=== PATIENT | male | born 1945 | race Caucasian/White ===

== ENCOUNTER 2020-01-19 23:13 | Emergency (ER) | payer MEDICARE, SELFPAY ==
[2020-01-19 23:14] VITALS: BP 183/99; PULSE 72; RESP 16; TEMP 36.2; O2SAT 98; BMI 27.3
--- NOTE | 2020-01-19 23:25 | CT_ITS ---
STUDY: CT BRAIN WITHOUT CONTRAST REASON FOR EXAM: Male, 74 years old. EtOH passed OUT IN THE Shower, laceration TO BACK OF HEAD,NECK PAIN -- HX:HTN RADIATION DOSAGE (If Supplied By Facility): CTDIvol = ( 44.99 ) mGy, DLP = ( 829.85 ) mGycm TECHNIQUE: Transaxial CT imaging of the brain was performed without administration of intravenous contrast material. Individualized dose optimization techniques were used for this CT. COMPARISON: No relevant priors. FINDINGS: There is a 5.2 x 1.5 cm left posterior parietal focus of soft tissue edema. There is no visualized fracture. Normal calvarium. There is mild cerebral atrophy with widening of the extra-axial spaces and ventricular dilatation. Normal white matter tracts of the cerebral hemispheres. Normal basal ganglia and thalami. Normal brainstem. Normal cerebellum. There is no intracranial hemorrhage. There are no findings of an acute ischemic infarction. There is mucoperiosteal inflammatory disease of the paranasal sinuses consistent with mild chronic sinusitis. CT/Brain/Head without Contrast IMPRESSION: Left posterior parietal focus of superficial soft tissue edema cephalohematoma without evidence of underlying fracture or acute hemorrhage. Mild atrophy. Mild sinusitis. Electronically Signed: Neelam Chávez MD at 0:38 EST Tel , Service support ,
--- NOTE | 2020-01-19 23:25 | CT_ITS ---
STUDY: CT CERVICAL SPINE WITHOUT CONTRAST REASON FOR EXAM: Male, 74 years old. EtOH passed out IN THE SHOWER,LACERATION TO BACK OF HEAD,NECK PAIN -- HX:HTN RADIATION DOSAGE (If Supplied By Facility): CTDIvol = ( 21.45 ) mGy, DLP = ( 419.14 ) mGycm TECHNIQUE: High resolution transaxial imaging was performed without contrast material. Sagittal and coronal images were reconstructed. Individualized dose optimization techniques were used for this CT. COMPARISON: None FINDINGS: Normal craniovertebral junction. There are degenerative changes of the anterior atlantoaxial articulation. Normal odontoid process. There is straightening of the normal cervical lordosis. Normal vertebral bodies and posterior osseous elements. C2-3: Normal endplates. Normal disc height and morphology. Normal central canal and intervertebral neuroforamina. C3-4: There is facet arthropathy right greater than left. There is moderate right neural foraminal narrowing and no significant central stenosis. C4-5: There is mild disc space narrowing facet arthropathy minimal neural foramina narrowing no significant central stenosis. C5-6: There is spondylosis. There is facet arthropathy. There is minimal neural foramina narrowing no significant central stenosis. There is facet arthropathy on the left with chronic appearing well-corticated fragmentation suggesting prior injury and/or degenerative change. There is calcification of the nuchal ligament. This calcification of the carotid bulbs. C6-7: There is disc space narrowing broad disc osteophyte minimal neural foramina narrowing no significant central stenosis. C7-T1: Normal endplates. Normal disc height and morphology. Normal central canal and intervertebral neuroforamina. In both apices there are nodular densities. On the right side there is a nodular density measuring 0.8 x 0.6 cm and 0.3 x 0.5 cm. On the left measuring 4.[address]/Spine Cervical without Contras IMPRESSION: Degenerative change no evidence of an acute fracture. Incidental visualization of nodules in the apices which may represent partial visualization of scarring or sequelae to prior inflammatory change however recommend full CT scan of the chest when appropriate for further clarification or comparison to prior study. Electronically Signed: Neelam Chávez MD at 0:43 EST Tel , Service support ,
--- NOTE | 2020-01-19 23:26 | ED.DCSUM_ITS ---
- ER Visit Summary Date of Service: 01/19/20 Chief Complaint: Fall, head and neck pain History of Present Illness: The patient is a 74 M who presents after a fall. Patient states he has been drinking alcohol all evening. He got into the shower and passed out. He did hit his head. He is complaining of pain in the occipital area as well as neck pain. He is denying any other symptoms. Last tetanus is unknown. No pain to his arms or legs. He does not remember how much alcohol he drank tonight. He is on no blood thinning medications. He states he drinks about 3 days a week. Physical Examination: Vital signs reviewed. Head exam shows a 3.5 cm laceration to the occiput. Heart is regular rate and rhythm without murmurs. Lungs are clear to auscultation. Abdomen is soft and nontender. The cervical spine is diffusely tender. Extremities reveal no edema. Skin exam normal. Neurologic exam shows equal strength and sensation. He is intoxicated but answers all questions appropriately. Test Results: CAT scan of the head shows scalp swelling but no other intracranial findings. CAT scan of the cervical spine reveals no acute fractures. The CAT scan does show the apical lung areas and he does have some scarring, likely due to his smoking. Emergency Department Course and Treatment: The patient had his tetanus status updated. I was able to place 4 hermelindo into the scalp wound. It was cleansed with chlorhexidine before him. He will have these out in 7 to 10 days. He is able to ambulate without any difficulties. His syncopal episode is likely due to being intoxicated and patient will be discharged to home with a sober ride. Treatment Plan: [] Disposition: Discharge Impression: Scalp laceration, 3.5 cm, scalp hematoma, syncope, alcohol intoxication Stable by ED physician This note was generated with [employer]oKard[employer] dictation software. It may contain incorrect words, spelling, and punctuation that were not noted in review of the chart prior to signing ED Disposition - Plan for ED Patient: Disposition: Home or Assisted Living Instructions: ED Head Injury Adult Referrals: NOT,DEFINED [NON-STAFF] -
[2020-01-19] MEDS: Diphth,Pertuss(Acell),Tet Vac 0.5 ML Vial IM (23:39)
[2020-01-19] MEDS: Acetaminophen 325 MG Tablet 650 MG PO (23:39)
[2020-01-20 01:09] VITALS: BP 182/90; PULSE 80; RESP 14; O2SAT 98
--- NOTE | 2020-01-20 01:10 | ED.RN ---
PT GIVEN WRITTEN AND VERBAL DISCHARGE INSTRUCTIONS. PT REMAINS HYPERTENSIVE HE WAS FROM ARRIVAL. DR. ZAMUDIO INFORMED, AND CLEARS PT FOR D/C. PT VERBALIZES UNDERSTANDING IS TO FOLLOW UP WITH PCP FOR STAPLE REMOVAL.
== END 2020-01-20 01:12 | disposition home or self-care (01) ==
PROVIDERS: Emergency Provider Emergency Medicine
DX: S01.01XA Laceration without foreign body of scalp, initial encounter (principal); R55 Syncope and collapse; F10.129 Alcohol abuse with intoxication, unspecified; Y90.9 Presence of alcohol in blood, level not specified; W18.2XXA Fall in (into) shower or empty bathtub, initial encounter; Y93.9 Activity, unspecified; Y92.9 Unspecified place or not applicable; Z23 Encounter for immunization
CPT/HCPCS: 12002; 70450; 72125; 90715; 99282

== ENCOUNTER → 2020-11-16 14:26 | Outpatient (CLI) | payer MEDICARE, SELFPAY ==
[2020-11-16 17:59] LABS: Absolute Neutrophil Count 4.9 X10^3/uL (2.0-7.7); Basophil# 0.05 X10^3/uL; Basophil% 0.6 % (0-1); Eosinophil# 0.47 X10^3/uL; Hemoglobin 14.2 g/dL (13.0-16.5); Lymphocyte % 22.9 % (19-41); Mean Corpuscular Hgb 31.3 pg (27.0-32.0); Mean Corpuscular Volume 94.9 fL (80-94); Mean Platelet Vol. 10.3 fl (6.2-12.0); Monocyte# 0.62 X10^3/uL; Monocyte% 7.9 % (0-10); NRBC Flagged by Analyzer 0 % (0-5); Neutrophil % 62.2 % (47-70); Platelet Count 287 K/mm3 (150-450); RBC Distribution Width SD 45.2 fl (35.1-43.9); Red Blood Count 4.53 M/mm3 (4.6-6.2); White Blood Count 7.9 K/mm3 (4.4-11.0)
[2020-11-16 18:57] LABS: AST(SGOT) 24 U/L (15-37); Alanine Aminotransfer ALT/SGPT 34 U/L (16-61); Albumin, Serum 3.6 g/dL (3.2-5.0); Alkaline Phosphatase 82 U/L (45-117); Anion Gap 5 (5-15); BUN 18 mg/dL (7-18); BUN/Creat Ratio 22.5 RATIO (10-20); Bilirubin, Direct 0.13 mg/dL (0.00-0.30); Calcium,Total 8.4 mg/dL (8.5-10.1); Chloride 107 mmol/L (98-107); EST Glomerular Filtration Rate 101 mL/min (>60); Est Glom Filt Rate - Afr Amer 122 mL/min (>60); Globulin 4.1 g/dL (2.2-4.2); Glucose 104 mg/dL (74-106); Potassium 3.5 mmol/L (3.5-5.1); Protein, Total 7.7 g/dL (6.4-8.2); Sodium Level 141 mmol/L (136-145)
[2020-11-17 09:32] LABS: Hepatitis B Surface Antibody Non-Reactive; Hepatitis B Surface Antigen Non-Reactive (Nonreactive); Hepatitis C Antibody Non-Reactive (Nonreactive)
== END ==
PROVIDERS: Referring Provider Dermatology; Visit Provider Dermatology
DX: L40.0 Psoriasis vulgaris (principal); Z79.899 Other long term (current) drug therapy
CPT/HCPCS: 36415; 80048; 80076; 85025; 86480; 86704; 86706; 86803; 87340

== ENCOUNTER → 2022-07-03 | Outpatient (CLI) | payer MEDICARE, SELFPAY ==
[2022-07-05 12:09] LABS: QNTFERON TB Mitogen Value > 10.00 IU/mL (.); QNTFERON TB Nil Value 0 IU/mL (.); QNTFERON TB1+ Ag Value 0 IU/mL (.); QNTFERON TB2+ Ag Value 0 IU/mL (.); QNTIFERON TB Positive Criteria Negative (Negative)
== END | disposition home or self-care (01) ==
PROVIDERS: Referring Provider Dermatology; Visit Provider Dermatology
DX: L40.0 Psoriasis vulgaris (principal); Z79.899 Other long term (current) drug therapy
CPT/HCPCS: 36415; 86480

== ENCOUNTER → 2022-08-14 | Outpatient (CLI) | payer MEDICARE, SELFPAY ==
--- NOTE | 2022-08-14 14:42 | CT_ITS ---
INDICATION: PULMONARY NODULES EXAMINATION: CT CHEST WITHOUT CONTRAST - CT Chest W/O Contrast Injection TECHNIQUE: Helically acquired images were obtained of the chest. A radiation dose optimization technique was used for this scan. IV Contrast dosage and agent: None. RADIATION DOSAGE (If Supplied By Facility): CTDIvol = ( 14.41 ) mGy, DLP = ( 508.32 ) mGycm COMPARISON: FINDINGS: LUNGS: Mild emphysematous changes, and subpleural reticular opacities bilaterally. No consolidation. Multiple calcified nodules bilaterally consistent with granulomata, more numerous on the left. Largest calcified nodule in the left upper lobe 1.8 cm abuts the fissure. There is a 0.4 cm noncalcified nodule in the left lower lobe, and a 0.3 cm noncalcified nodule in the right upper lobe. LARGE AIRWAYS: Unremarkable. PLEURA: No pleural effusion. No pneumothorax. MEDIASTINUM: Calcified lymph nodes in the mediastinum and bilateral hilar regions. Also noncalcified enlarged lymph nodes, largest precarinal node 1.2 cm in short axis, subcarinal node 1.5 cm. HEART: Not enlarged. CORONARY ARTERIES: Coronary artery calcification is seen. AORTA/VESSELS: No aortic aneurysm. ESOPHAGUS: Unremarkable. UPPER ABDOMEN: No acute findings. Calcifications in the liver and spleen likely related to prior granulomatous process BONES/SOFT TISSUES: No acute abnormality. OTHER/LINES: None. CT/Chest without Contrast IMPRESSION: Evidence of prior granulomatous disease. Noncalcified nodules left lower lobe 4 mm, right upper lobe [address] imaging follow-up recommended according to the following guidelines. Mediastinal adenopathy, uncertain etiology continued follow-up is recommended. Emphysematous changes. *Fleischner Society Recommendations (Radiology 2017, [id number].) (Follow-up and management of multiple nodules smaller than 8 mm detected incidentally at non-screening CT. Newly detected indeterminate nodule in persons 35 years of age or older.) Low risk patient: Minimal or absent history of smoking and of other known risk factors. < 6 mm: No followup needed 6-8mm: Initial Follow-up CT at 3-6 months, then consider CT at 18-24 months >8mm: CT at 3-6 months, then consider CT at 18-24 months High risk patient: History of smoking or of other known risk factors. < 6 mm: Optional CT at 12 months. 6-8mm: CT at 3-6 months, then CT at 18-24 months. >8mm: CT at 3-6 months, then CT at 18-24 months . Electronically Signed: Carleen Ordoñez MD at 18:05 EDT ,
== END | disposition home or self-care (01) ==
LOC: CT 14:40
PROVIDERS: PCP Nurse Practitioner Family; Referring Provider Nurse Practitioner Family; Visit Provider Nurse Practitioner Family
DX: Z87.891 Personal history of nicotine dependence (principal); R91.8 Other nonspecific abnormal finding of lung field; Z77.090 Contact with and (suspected) exposure to asbestos
CPT/HCPCS: 71250

== ENCOUNTER 2022-08-16 19:41 | Emergency (ER) | payer MEDICARE, SELFPAY ==
[2022-08-16 19:42] VITALS: BP 191/90; PULSE 81; RESP 18; TEMP 37.1; O2SAT 99; BMI 29.9
[2022-08-16 19:53] LABS: Bacteria 0 SEEN /hpf (None Seen); Mucous, Urine 0 SEEN /hpf (<or=2+); White Blood Cells 0 SEEN /hpf (0-5)
[2022-08-16 19:56] LABS: Color, Urine Red (Yellow); Glucose, Dipstick Normal (Normal); Ketone-Dipstick Negative (Negative); Leukocyte Esterase-Dipstick Negative /ul (Negative); Nitrite-Dipstick Negative (Negative); Occult Blood-Urine 250 /ul (Negative); Protein-Dipstick 500 mg/dl (Negative); Specific Gravity, Urine 1.015 (1.002-1.030); Urine Bilirubin Dipstick Negative (Negative); Urine Clarity Cloudy (Clear); Urine Urobilinogen Normal (Normal)
[2022-08-16 20:12] LABS: Red Blood Cells-Urine > 100 SEEN /hpf (0-5); Squamous Epithelial Cells - UA 5-10 SEEN /hpf (0-5)
[2022-08-16 20:13] LABS: Amorphous Sediment 1+ PHOS
--- NOTE | 2022-08-16 20:34 | CT_ITS ---
INDICATION: Painless gross hematuria EXAMINATION: CT ABDOMEN AND PELVIS WITH CONTRAST - CT Abdomen And Pelvis W/ Contrast Injection TECHNIQUE: Helically acquired images were obtained of the abdomen and pelvis following IV contrast. A radiation dose optimization technique was used for this scan. IV Contrast dosage and agent: 100 mL of Isovue-[id number]. Oral contrast: None. COMPARISON: CT chest August 14, 2022. FINDINGS: LOWER CHEST: No left lower lobe pulmonary nodule as above the [id number]. No pulmonary nodules visible. No cardiomegaly or pericardial effusion. Coronary artery calcifications and/or stents are visible. Suspected small sliding hiatal hernia. LIVER: Homogeneous. No focal mass. Numerous tiny calcifications. GALLBLADDER AND BILIARY TREE: No calcified gallstones. No gallbladder distension or wall edema. No intra- or extrahepatic biliary ductal dilation. PANCREAS: No focal cystic or solid mass. SPLEEN: Normal size without focal cystic or solid mass. Numerous tiny calcifications. ADRENAL GLANDS: No nodules. KIDNEYS, URETERS and BLADDER: Normal renal size and position. No mass. No hydronephrosis. Highly suspicious, enhancing bladder mass, 5.4 x 3.3 cm. Polypoid type morphology with extension from the posterior urinary bladder base, near the indented portion from the prostate gland. PERITONEUM: No ascites or free air. No other fluid collection. BOWEL: No evidence of acute appendicitis. No abnormally distended bowel loops or air fluid levels. No wall thickening or mass. No focal inflammatory changes. Diverticulosis sigmoid colon. No diverticulitis. LYMPH NODES: No enlarged mesenteric or retroperitoneal lymph nodes. VESSELS: Minimal fusiform dilation infrarenal abdominal aorta measuring 2.5 x 2.7 cm with low density crescent shaped peripheral aneurysmal sac. Common iliac arteries and arch vessels are within normal limits. REPRODUCTIVE ORGANS: 5.6 cm wide enlarged prostate partially indenting the urinary bladder. ABDOMINAL WALL: 13 mm fascial defect at the umbilicus with fat filled hernia sac. BONES: No lytic or blastic abnormality. Rudimentary ribs at L1. L4-5 intervertebral disc height loss and vacuum disc phenomenon. Multilevel degenerative endplate changes. Moderate facet arthropathy most notable at L5-S1 on the right. CT/Abdomen/Pelvis W IV Cont ONLY IMPRESSION: 5.4 x 3.3 cm highly suspicious enhancing mass in the urinary bladder likely representing urothelial carcinoma. No regional lymphadenopathy, retroperitoneal lymphadenopathy or evidence of static disease. Enlarged prostate gland. Stigmata of prior granulomatous infection liver and spleen. Mild fusiform aneurysmal dilation abdominal aorta, 2.5 x 2.7 cm. 13 mm fascial defect at the umbilicus with fat filled hernia sac. Electronically Signed: Eyal Roger DO at 22:01 EDT ,
--- NOTE | 2022-08-16 20:40 | EX.ED.DYSGE1 ---
HPI <Dr. Junior Baltazar MD - Last Filed: 08/22/22 13:53> History of Present Illness Chief Complaint: Complaint Detail of Chief Complaint: Painless gross hematuria with urgency since 1300 Informant: patient Onset/Context/Timing Onset: Today and Hours Context: Sudden Onset Timing: Intermittent Quality: Gross hematuria Location: Current Severity: Moderate Maximum Severity: Moderate Worsened by: Nothing Relieved by: Nothing Associated Symptoms Associated Symptoms: Urinary pain every 15 to 30 minutes Narrative Narrative: Patient is a 76-year-old male who stated when I walked in I have a urinary tract infection . Patient was informed that there is no evidence of infection based on his urinalysis. Patient denies fever, chills night sweats. Patient denies weight loss. He does endorse weight gain. He does have history of enlarged prostate. He denies dysuria but does report urgency and frequency. He states he is going every 15 to 30 minutes. He denies low back pain or flank pain. He denies history of renal or ureterolithiasis. He denies testicular or scrotal pain. He denies swelling of his scrotum. Patient denies cardiac, respiratory or GI symptoms. Patient is not on an antithrombotic or anticoagulant. He also asked for me to check his legs because of swelling. Patient reports that his leg swelling is worse at night and better in the morning. And he does admit that he has been sitting for longer durations over the past 2 to 3 weeks. Patient denies orthopnea or PND. Patient denies history of cardiac disease. Prior similar symptoms: No Recent Illness/Hospitalization: No PFSH <Dr. Junior Baltazar MD - Last Filed: 08/22/22 13:53> PFS Medical History Former smoker Osteoporosis Rotator cuff arthropathy of both shoulders Trigger finger of left hand Umbilical hernia no medical history Home Medications amlodipine 10 mg tablet 10 mg PO DAILY 08/20/22 [History Last Taken Unknown] atorvastatin 40 mg tablet 40 mg PO DAILY 08/20/22 [History Last Taken Unknown] ixekizumab 80 mg/mL subcutaneous auto-injector (Taltz Autoinjector) 80 mg subcut Q4W 08/20/22 [History Last Taken Unknown] omeprazole 20 mg capsule,delayed release 20 mg PO DAILY 08/20/22 [History Last Taken Unknown] Allergy/AdvReac Type Severity Reaction Status Date / Time Penicillins Allergy Intermediate Itching Verified 08/20/22 10:36 Surgical History H/O hemorrhoidectomy Social History (Updated 08/20/22 @ 10:39 by Afia Thapa) household members: none Smoking Status: Former smoker Tobacco: How many years used: 20 substance use type: does not use ROS <Dr. Junior Baltazar MD - Last Filed: 08/22/22 13:53> ROS ED Constitutional Constitutional ED: Denies chills, fever(s), subjective, sweats or weight loss Cardiovascular Cardiovascular: Denies chest pain, orthopnea, palpitations or paroxysmal nocturnal dyspnea Respiratory/Chest Respiratory/Chest: Denies cough, dyspnea, dyspnea on exertion, orthopnea or paroxysmal nocturnal dyspnea Gastrointestinal Gastrointestinal: Denies abdominal pain, nausea or vomiting Genitourinary Genitourinary ED: Reports hematuria and urinary frequency; Denies dysuria Musculoskeletal Musculoskeletal: Denies arthralgias, back pain, myalgias or neck pain Integumentary Denies rash Neurologic Neurologic: Denies headache(s), paresthesias, weakness or other Hematologic/Lymphatic Hematologic/Lymphatic: Reports systems reviewed and no addt'l complaints, except as documented EXAM <Dr. Junior Baltazar MD - Last Filed: 08/22/22 13:53> Physical Exam Const Vital Signs: 08/16/22 19:42 Temperature 98.7 F Temperature Source Oral Pulse Rate 81 Respiratory Rate 18 Blood Pressure 191/90 H Blood Pressure Mean 123 Pulse Ox 99 Oxygen Delivery Method Room Air Positive well nourished and well developed General Appearance ED: well developed and NAD; Negative for cyanotic, diaphoretic or pallor HEENT Reports moist mucous membranes HEENT Narrative: Head is atraumatic normocephalic. Ears are normal. Nares patent. Sclera is anicteric. Conjunctive is pink. Eyes PERRL and EOMs intact bilaterally General Eye ED: Negative for pale conjunctiva or scleral icterus Neck no lymphadenopathy and no JVD Resp normal respiratory effort and clear to auscultation bilaterally Cardio regular rate, regular rhythm, S1 normal heart sound, S2 normal heart sound and no murmurs GI normal to inspection, nondistended, normoactive bowel sounds, non-tender, non-distended and no masses; Negative for hepatosplenomegaly GI Narrative: Patient is a small reducible Bilik hernia Back/Spine no CVA tenderness Cervical Spine: Negative for cervical spine tenderness Thoracic Spine / Upper Back: Negative for thoracic spinal tenderness Lumbar Spine / Lower Back: Negative for lumbar spinal tenderness Extremity Extremity Narrative: Pitting edema otherwise normal General Extremety ED: Yes edema General Extremity: edema Neuro oriented x3 and CN's II-XII intact bilaterally Sensorium / Orientation: alert Psych mental status grossly normal Skin no rashes or lesions noted, no wounds and skin turgor normal General Skin Exam: Negative for jaundice or pallor <Dr. Johnathan Pelaez MD - Last Filed: 08/16/22 23:00> Physical Exam Const Vital Signs: 08/16/22 19:42 Temperature 98.7 F Temperature Source Oral Pulse Rate 81 Respiratory Rate 18 Blood Pressure 191/90 H Blood Pressure Mean 123 Pulse Ox 99 Oxygen Delivery Method Room Air MDM <Dr. Junior Baltazar MD - Last Filed: 08/22/22 13:53> [facility] MDM Narrative Medical decision making narrative: Urine reveals gross hematuria. There is no evidence of infection. There is no pyuria, bacteriuria and nitrites and leukoesterase are negative. Since patient has painless gross hematuria will obtain CT of the abdomen pelvis with IV contrast to assess kidneys and bladder. Also will have bladder scan determine if he is going frequently because he has a collection of blood in his bladder. CBC was obtained assess white count as well as H&H. BMP to assess renal function prior to IV contrast. Lab Data Attestation: I reviewed the patient's lab results. Lab results narrative: CBC is unremarkable/normal. UA reveals gross hematuria without evidence of infection Labs: Laboratory Results - last 24 hr 08/16/22 08/16/22 08/16/22 19:49 20:58 20:58 WBC 8.1 RBC 4.82 Hgb 14.9 Hct 43.8 MCV 90.9 MCH 30.9 MCHC 34.0 RDW Std Deviation 39.8 RDW Coeff of Antoine 12.0 Plt Count 276 MPV 9.4 Immature Gran % (Auto) 0.200 Neut % (Auto) 54.1 Lymph % (Auto) 27.5 Davidson % (Auto) 10.5 H Eos % (Auto) 7.0 H Baso % (Auto) 0.7 Absolute Neuts (auto) 4.4 Absolute Lymphs (auto) 2.23 Nucleated RBC % 0 Sodium 140 Potassium 3.6 Chloride 107 Carbon Dioxide 27.0 Anion Gap 6 BUN 10 Creatinine 0.88 Estim Creat Clear Calc 90.42 Est GFR (MDRD) Af Amer 109 Est GFR (MDRD) Non-Af 90 BUN/Creatinine Ratio 11.4 Glucose 102 Calcium 9.0 Urine Color Red Urine Clarity Cloudy Urine pH 8.0 Ur Specific [place] 1.015 Urine Protein 500 H Urine Glucose (UA) Normal Urine Ketones Negative Urine Occult Blood 250 H Urine Nitrite Negative Urine Bilirubin Negative Urine Urobilinogen Normal Ur Leukocyte Esterase Negative Urine RBC > 100 SEEN Urine WBC 0 SEEN Ur Squamous Epith Cells 5-10 SEEN Amorphous Sediment 1+ PHOS Urine Bacteria 0 SEEN Urine Mucus 0 SEEN Radiography Diagnostic Testing: Clinical Impression(s) from Imaging Studies Abdomen/Pelvis CT 08/16/22 20:34 IMPRESSION: 5.4 x 3.3 cm highly suspicious enhancing mass in the urinary bladder likely representing urothelial carcinoma. No regional lymphadenopathy, retroperitoneal lymphadenopathy or evidence of static disease. Enlarged prostate gland. Stigmata of prior granulomatous infection liver and spleen. Mild fusiform aneurysmal dilation abdominal aorta, 2.5 x 2.7 cm. 13 mm fascial defect at the umbilicus with fat filled hernia sac. Electronically Signed: Eyal Roger DO at 22:01 EDT , <Dr. Johnathan Pelaez MD - Last Filed: 08/16/22 23:00> [facility] Lab Data Labs: Laboratory Results - last 24 hr 08/16/22 08/16/22 08/16/22 19:49 20:58 20:58 WBC 8.1 RBC 4.82 Hgb 14.9 Hct 43.8 MCV 90.9 MCH 30.9 MCHC 34.0 RDW Std Deviation 39.8 RDW Coeff of Antoine 12.0 Plt Count 276 MPV 9.4 Immature Gran % (Auto) 0.200 Neut % (Auto) 54.1 Lymph % (Auto) 27.5 Davidson % (Auto) 10.5 H Eos % (Auto) 7.0 H Baso % (Auto) 0.7 Absolute Neuts (auto) 4.4 Absolute Lymphs (auto) 2.23 Nucleated RBC % 0 Sodium 140 Potassium 3.6 Chloride 107 Carbon Dioxide 27.0 Anion Gap 6 BUN 10 Creatinine 0.88 Estim Creat Clear Calc 90.42 Est GFR (MDRD) Af Amer 109 Est GFR (MDRD) Non-Af 90 BUN/Creatinine Ratio 11.4 Glucose 102 Calcium 9.0 Urine Color Red Urine Clarity Cloudy Urine pH 8.0 Ur Specific [place] 1.015 Urine Protein 500 H Urine Glucose (UA) Normal Urine Ketones Negative Urine Occult Blood 250 H Urine Nitrite Negative Urine Bilirubin Negative Urine Urobilinogen Normal Ur Leukocyte Esterase Negative Urine RBC > 100 SEEN Urine WBC 0 SEEN Ur Squamous Epith Cells 5-10 SEEN Amorphous Sediment 1+ PHOS Urine Bacteria 0 SEEN Urine Mucus 0 SEEN Radiography Diagnostic Testing: Clinical Impression(s) from Imaging Studies Abdomen/Pelvis CT 08/16/22 20:34 IMPRESSION: 5.4 x 3.3 cm highly suspicious enhancing mass in the urinary bladder likely representing urothelial carcinoma. No regional lymphadenopathy, retroperitoneal lymphadenopathy or evidence of static disease. Enlarged prostate gland. Stigmata of prior granulomatous infection liver and spleen. Mild fusiform aneurysmal dilation abdominal aorta, 2.5 x 2.7 cm. 13 mm fascial defect at the umbilicus with fat filled hernia sac. Electronically Signed: Eyal Roger DO at 22:01 EDT , Management Discussion w/another healthcare provider: [facility] [employer] [facility] (Urology) Treatment and Re-Evaluation Comments:: Patient checked out to me for CT results and reevaluation. I reviewed the images and the CT result and I agree with the interpretation, basically shows a bladder mass suspicious for cancer. I discussed this with the patient and told him that this is probably cancer until proven otherwise and probably responsible for his bleeding, referral to urology as indicated. I discussed with our on-call urologist Dr. Hoffmann, he states given the fact that the patient's bleeding is improving he does not have acute retention and he is not anticoagulated the patient is okay following up as an outpatient and he is okay with this as well. We discussed reasons to return, he will follow-up after the weekend in the office. He is comfortable with that plan. Discharge Plan Triage Chief Complaint: Complaint ED Provider: Junior Baltazar Dx/Rx/DC Orders Clinical Impression: Bladder mass, Hematuria Instructions: ED Hematuria Prescriptions: No Action atorvastatin 40 mg tablet 40 mg PO DAILY omeprazole 20 mg capsule,delayed release(DR/EC) 20 mg PO DAILY amlodipine 10 mg tablet 10 mg PO DAILY Taltz Autoinjector 80 mg/mL auto-injector 80 mg subcut Q4W Primary Care Provider: Rosenda Dickson NP Referrals: Darrell Monet MD [Med Staff - Active Staff] - As soon as possible (Call for appointment to be seen after the weekend this coming week) Rosenda Dickson NP, [employer] [Primary Care Provider] - Activity Restrictions/Additional Instructions: If you feel like you need to urinate but are unable, return to the ER immediately. Discontinue your aspirin until you see urology. Disposition Disposition: Home, Self Care Discharge Date/Time: 08/16/22 23:31
[2022-08-16 21:09] LABS: Absolute Lymphocyte Count 2.23 X10^3/uL (0.83-4.51); Absolute Neutrophil Count 4.4 X10^3/uL (2.0-7.7); Basophil# 0.06 X10^3/uL; Basophil% 0.7 % (0-1); Eosinophil# 0.57 X10^3/uL; Hematocrit 43.8 % (40-54); Hemoglobin 14.9 g/dL (13.0-16.5); Lymphocyte # 2.23 X10^3/ul (0.83-4.51); Lymphocyte % 27.5 % (19-41); Mean Corpuscular Hgb 30.9 pg (27.0-32.0); Mean Corpuscular Volume 90.9 fL (80-94); Mean Platelet Vol. 9.4 fl (6.2-12.0); Monocyte# 0.85 X10^3/uL; Monocyte% 10.5 % (0-10); NRBC Flagged by Analyzer 0 % (0-5); Neutrophil # 4.38 X10^3/uL (2.7-7.7); Neutrophil % 54.1 % (47-70); Platelet Count 276 K/mm3 (150-450); RBC Distribution Width SD 39.8 fl (35.1-43.9); Red Blood Count 4.82 M/mm3 (4.6-6.2); White Blood Count 8.1 K/mm3 (4.4-11.0)
[2022-08-16 21:24] LABS: Anion Gap 6 (5-15); BUN 10 mg/dL (7-18); BUN/Creat Ratio 11.4 RATIO (10-20); Chloride 107 mmol/L (98-107); Creatinine, Serum 0.88 mg/dL (0.70-1.30); EST Glomerular Filtration Rate 90 mL/min (>60); Est Glom Filt Rate - Afr Amer 109 mL/min (>60); Estimated Creatinine Clearance 90.42 ml/min; Glucose 102 mg/dL (74-106); Potassium 3.6 mmol/L (3.5-5.1); Sodium Level 140 mmol/L (136-145)
[2022-08-16 23:29] VITALS: BP 173/97; BP 174/97; PULSE 75; RESP 16; O2SAT 98
== END 2022-08-16 23:31 | disposition home or self-care (01) ==
PROVIDERS: Emergency Provider Emergency Medicine; PCP Nurse Practitioner Family; Visit Provider Emergency Medicine
DX: R31.9 Hematuria, unspecified (principal); N32.9 Bladder disorder, unspecified; F17.210 Nicotine dependence, cigarettes, uncomplicated
CPT/HCPCS: 74177; 80048; 81001; 85025; 87086; 99284; Q9967; A4216

== ENCOUNTER 2022-08-17 12:34 | Emergency (ER) | payer MEDICARE, SELFPAY ==
[2022-08-17 12:35] VITALS: BP 152/77; PULSE 92; RESP 18; TEMP 36.2; O2SAT 96; BMI 29.8
--- NOTE | 2022-08-17 12:47 | ED.RN ---
This RN educated pt. that his discharge paperwork from last night states he will need to follow up with Dr. Monet next week. Pt. stated he would not be waiting for that and he wants the ED dr. today to call Dr. Monet and get this stuff figured out
--- NOTE | 2022-08-17 13:04 | EX.ED.DYSGE1 ---
HPI <OMAR Zarco - Last Filed: 08/17/22 13:50> History of Present Illness Chief Complaint: Complaint Narrative Narrative: Patient presenting today due to hematuria and passing blood clots through the urine. He reports that he was here yesterday for the same thing and was told he did not have a UTI but a CT scan of his abdomen and pelvis was performed due to the hematuria that revealed a bladder mass. He was told to follow-up with the urologist but was unable to get a hold of Dr. Monet's office today because they are closed and did not want to go the whole weekend without being seen. He reports that since this morning, he has intermittently been passing small blood clots through his urine. He is not on any blood thinners and discontinued his aspirin as advised. He denies any urinary retention, fever, and chills. PFSH <OMAR Zarco - Last Filed: 08/17/22 13:50> PFSH Medical History Former smoker Osteoporosis Rotator cuff arthropathy of both shoulders Trigger finger of left hand Umbilical hernia Allergy/AdvReac Type Severity Reaction Status Date / Time No Known Allergies Allergy Verified 08/16/22 19:44 Surgical History H/O hemorrhoidectomy Social History household members: none Smoking Status: Current every day smoker tobacco type: cigarettes substance use type: does not use ROS <OMAR Zarco - Last Filed: 08/17/22 13:50> ROS ED Constitutional Constitutional ED: Denies chills or fever(s) Cardiovascular Cardiovascular: Denies chest pain Respiratory/Chest Respiratory/Chest: Denies cough or dyspnea Gastrointestinal Gastrointestinal: Denies abdominal pain, nausea or vomiting Genitourinary Genitourinary ED: Reports hematuria; Denies dysuria Musculoskeletal Musculoskeletal: Denies arthralgias or myalgias Neurologic Neurologic: Denies weakness EXAM <OMAR Zarco - Last Filed: 08/17/22 13:50> Physical Exam Const Vital Signs: 08/17/22 12:35 Temperature 97.1 F L Temperature Source Temporal Pulse Rate 92 Respiratory Rate 18 Blood Pressure 152/77 H Blood Pressure Mean 102 Pulse Ox 96 Positive well nourished, well developed and no apparent distress General Appearance ED: well developed HEENT Reports normocephalic and head/scalp atraumatic Mouth ED: Yes moist mucous membranes normal Eyes PERRL and EOMs intact bilaterally Neck full ROM and supple Chest Wall inspection of chest normal Resp normal respiratory effort and clear to auscultation bilaterally Cardio regular rate and regular rhythm GI soft to palpation, non-tender, non-distended and no masses Back/Spine normal ROM and normal to inspection Extremity normal to inspection and full ROM Neuro oriented x3, CN's II-XII intact bilaterally, moves all extremities, no focal motor deficits and no sensory deficits noted Sensorium / Orientation: awake and alert Psych mental status grossly normal and thought process normal Skin no rashes or lesions noted and no wounds <Dr. Yadira Pratt MD - Last Filed: 08/17/22 19:22> Physical Exam Const Vital Signs: 08/17/22 12:35 Temperature 97.1 F L Temperature Source Temporal Pulse Rate 92 Respiratory Rate 18 Blood Pressure 152/77 H Blood Pressure Mean 102 Pulse Ox 96 MDM <OMAR Zarco - Last Filed: 08/17/22 13:50> [facility] Narrative Medical decision making narrative: Patient presenting due to intermittent hematuria and passing small clots in the urine. 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 Attending at that time did speak with Dr. Monet who felt that patient could follow-up outpatient in the office next week as he is not on any anticoagulants and is not having any urinary retention. He denies any urinary retention and he discontinued his aspirin today as advised. He was worried because he called Dr. Monet's office today but they are closed and became worried that he would have to go the whole weekend with these symptoms. I reassured him, ultimately he needs to follow-up with the urologist. Since he is not having any urinary retention and he is passing blood intermittently there is nothing for us to emergently do to at this time. He will be discharged home in stable condition and is comfortable with plan. <Dr. Yadira Pratt MD - Last Filed: 08/17/22 19:22> [facility] Treatment and Re-Evaluation :: Patient seen and evaluated with DESTIN. I personally interviewed and examined the patient. I was involved in all aspects of patient's orders, interpretation of results, and treatment. Patient presents secondary to continued hematuria. Patient was seen in the emergency room last night and found to have a bladder mass causing hematuria. Patient states he still noted some hematuria today with small clots. He does not feel as if he cannot empty his bladder. He is instructions had said to return to the ER if he has clots. He attempted to call urology for follow-up with their office is closed today. Patient sitting upright in bed no acute distress. Head and neck examination unremarkable. Heart is regular rate and rhythm. Lung sounds are clear. Abdomen is soft and nontender. Patient's work-up from last evening is reviewed. We discussed potential need for a Taylor catheter if he is unable to pass his urine. He states at this time he does feel he is able to empty and has not had as much blood or clot as he had yesterday. He will continue to monitor his symptoms and understands he may need to return if he is unable to urinate. Discharge Plan Triage Chief Complaint: Complaint ED Midlevel Provider: Tsih Humphreys ED Provider: Yadira Pratt Dx/Rx/DC Orders Clinical Impression: Bladder mass, Hematuria Instructions: ED Hematuria Primary Care Provider: Rosenda Dickson NP Referrals: Darrell Monet MD [Med Staff - Active Staff] - As soon as possible Rosenda Dickson NP, [employer] [Primary Care Provider] - 3-5 Days Activity Restrictions/Additional Instructions: Please follow-up with Dr. Monet. Return for any urinary retention. Disposition Disposition: Home, Self Care Discharge Date/Time: 08/17/22 13:29
== END 2022-08-17 13:29 | disposition home or self-care (01) ==
LOC: ED 13:28
PROVIDERS: Emergency Provider Emergency Medicine; PCP Nurse Practitioner Family; Visit Provider Emergency Medicine
DX: R31.9 Hematuria, unspecified (principal); N32.9 Bladder disorder, unspecified; F17.210 Nicotine dependence, cigarettes, uncomplicated
CPT/HCPCS: 99282

== ENCOUNTER 2022-09-05 13:24 | Observation (INO) | payer MEDICARE, SELFPAY ==
--- NOTE | 2022-08-30 10:13 | EKG12_ITS ---
Test Reason : PREOP Blood Pressure : / mmHG Vent. Rate : 060 BPM Atrial Rate : 060 BPM P-R Int : 174 ms QRS Dur : 104 ms QT Int : 456 ms P-R-T Axes : 039 042 068 degrees QTc Int : 456 ms Normal sinus rhythm Normal ECG Confirmed by ROSARIO FOUNTAIN, MARY ([id number]), editor continuity and script BIRD VALDEZ ([id number]) on 09/03/2022 12:41:46 P M Referred By: Darrell Monet Confirmed By:NASRIN PONCE MD
[2022-09-05] VITALS (13 sets, daily range): BP systolic 129–177; BP diastolic 68–96; PULSE 57–90; RESP 16–18; TEMP 36.4–36.8; O2SAT 94–98; BMI 29.5
--- NOTE | 2022-09-05 | BLB_PTH ---
PATIENT: TYLER OLIVO LOC: MS3 U#:[id number] AGE/SX: 76/M ROOM: IN315 RE09/05/[address]: Dr. Darrell Monet MD : 1945 BED: 1 DIS: 09/06/2022 SPEC #: [id number] RECD: 09/05/22 15:30 STATUS: PATT ROBLEROJulissa #: [id number] LAURIE: 09/05/22 00:[address]: Darrell Monet DEPT: SURGICAL PATHOLOGY RECD BY: Logan Smith ENTERED: 09/06/22 13:09 SP TYPE: TURB OTHR DR: DO Dr. Digna Cain MD Dr. Ama Paintsil, MD Dr. Nicholas F Kotsonis, MD Debra Lewis, NP-C Tissues: Urinary bladder, NOS Procedures: Surgery Specimen Level V HEADER OPERATION: Transurethral resection of bladder tumor PRE-OP DIAGNOSIS: Bladder tumor TISSUE SUBMITTED: Bladder tissue MICROSCOPIC DIAGNOSIS Bladder tissue, transurethral resection: Mild chronic inflammation. Mucosal edema. No evidence of malignancy. AM:elian 09/07/22 MICROSCOPIC DESCRIPTION Slides are reviewed. GROSS DESCRIPTION Received in fixative is one container labeled with the patient's name and designated bladder tumor. The specimen consists of multiple irregular fragments of pink-wang, rubbery, soft tissue that in aggregate measure 0.8 x 0.4 x 0.1 cm. The specimen is totally submitted in one cassette. /RAS:glenis 09/06/22 TC3: CPT:48637
[2022-09-05] MEDS: Lactated Ringers 1,000 ML 15 ML IV (07:30)
--- NOTE | 2022-09-05 08:52 | HP.PCM_ITS ---
HPI - General General Date of Service: 09/05/22 Chief Complaint: Bladder mass HPI Narrative TYLER OLIVO, is a 76 M who presents transurethral resection of a bladder tumor instillation Mitomycin-C [facility] Medical History (Updated 09/05/22 @ 08:[address] Darrell Monet MD) Bladder disease Cancer Former smoker Gastric reflux Osteoporosis Rotator cuff arthropathy of both shoulders Shortness of breath on exertion Trigger finger of left hand Umbilical hernia Wears dentures Wears glasses Home Medications amlodipine 10 mg tablet 10 mg PO DAILY 08/20/22 [History Last Taken 09/05/22 05:30] atorvastatin 40 mg tablet 40 mg PO DAILY 08/20/22 [History Last Taken Unknown] ixekizumab 80 mg/mL subcutaneous auto-injector (Solvoyotz Autoinjector) 80 mg subcut Q4W 08/20/22 [History Last Taken Unknown] omeprazole 20 mg capsule,delayed release 20 mg PO DAILY 08/20/22 [History Last Taken 09/05/22 05:30] epinephrine 0.3 mg/0.3 mL injection, auto-injector 0.3 mg IM DAILY PRN ALLERGY 08/27/22 [History Last Taken Unknown] losartan 25 mg tablet 25 mg PO DAILY 08/27/22 [History Last Taken 09/05/22 05:30] omega 3-ygz-ith-fish oil 300 mg-1,000 mg capsule,delayed release (Fish Oil) 1 cap PO DAILY 08/27/22 [History Last Taken Unknown] cephalexin 500 mg capsule 500 mg PO BID #10 caps 09/05/22 [Rx Last Taken Unknown] oxycodone 5 mg capsule 5 mg PO Q6H PRN pain 7 days #14 caps 09/05/22 [Rx Last Taken Unknown] Allergy/AdvReac Type Severity Reaction Status Date / Time PEANUTS Allergy Severe Anaphylaxis Uncoded 08/27/22 15:03 Surgical History H/O hemorrhoidectomy Social History (Updated 08/20/22 @ 10:39 by Afia Thapa) household members: none Smoking Status: Former smoker Tobacco: How many years used: 20 substance use type: does not use Vital Signs Vital Signs Vital Signs: 09/05/22 07:33 09/05/22 07:33 Temperature 98.1 F Temperature Source Temporal Pulse Rate 68 Respiratory Rate 18 Respiratory Pattern Normal Blood Pressure 154/82 H Blood Pressure Mean 106 Blood Pressure Source Monitor Blood Pressure Position Sitting Blood Pressure Location Left Arm Pulse Ox 98 Oxygen Delivery Method Room Air Weight Weight: 107 kg Body Mass Index (BMI) 29.5
--- NOTE | 2022-09-05 08:52 | DCINST_ITS ---
Discharge Instructions Diet Discharge Diet: No restrictions Activity Discharge Activity: Return to Normal Activity Lifting Restrictions: no lifting heavy for 4 weeks Follow Up Care Please Follow Up With: Darrell Monet MD When: call for appt. Test Results: Test results from this visit will be discussed in further detail at your follow-up appointment, if applicable. Discharge Plan Admission Primary Reason for Your Visit: Bladder cancer Attending Provider: Darrell Monet Primary Care Provider: Rosenda Dickson NP Discharge Orders/Prescriptions Prescriptions: New oxycodone 5 mg capsule 5 mg PO Q6H PRN (Reason: pain) 7 Days Qty: 14 0RF cephalexin 500 mg capsule 500 mg PO BID Qty: 10 0RF Continued atorvastatin 40 mg tablet 40 mg PO DAILY omeprazole 20 mg capsule,delayed release(DR/EC) 20 mg PO DAILY amlodipine 10 mg tablet 10 mg PO DAILY Taltz Autoinjector 80 mg/mL auto-injector 80 mg subcut Q4W epinephrine 0.3 mg/0.3 mL auto-injector 0.3 mg IM DAILY PRN (Reason: ALLERGY) losartan 25 mg tablet 25 mg PO DAILY omega 5-eyb-hnx-fish oil [Fish Oil] 300-1,000 mg capsule,delayed release(DR/EC) 1 cap PO DAILY Referrals / Follow Up: Darrell Monet MD [Med Staff - Active Staff] - Rosenda Dickson NP, [employer] [Primary Care Provider] - Disposition Disposition (needs filled in before D/C Order can be placed): Home, Self Care
[2022-09-05] MEDS: Cefazolin 2 GM in 0.9% Normal Saline 100 ML IV (09:03)
--- NOTE | 2022-09-05 09:39 | PCM.OPRPT ---
Report of Operation Date of Procedure: 09/05/22 Pre-Operative Diagnosis: Possible bladder mass and gross hematuria Post-Operative Diagnosis: The same, very large prostate some polyp areas on the prostate but does not look like cancer Surgery/Procedure Performed:: Transurethral resection of tumor medium Description of Surgical Findings:: Indication this is a 76-year-old male presented with gross hematuria CT scan was done that demonstrated what appeared to be a mass at the base of the bladder right on top of the prostate and so today Lorraine taken the surgery to do a cystoscopy and possible resection of a bladder tumor. Patient was taken back to the operating room after smooth induction of anesthesia he was placed in dorsolithotomy position. The penis testicles were prepped and draped in usual sterile fashion. Went into the bladder with a 21 Slovak rigid cystourethroscope upon entering the entire length of the urethra was normal the sphincter was normal the prostate verumontanum was identified prostate was significantly enlarged with bilateral hypertrophy median lobe went inside the very large median lobe there was some polyps coming off the prostate but these appear to be benign in nature but certainly could be the source of the bleeding. I then did a cystoscopy 30 and 70 degree lens I found a very large protruding prostate but no obvious cancer in the bladder just the polyps coming from the bladder and prostate area but this looked like polyps from the bladder like benign polyps from BPH. So then I put in the resectoscope and resected these polyps. So we will send him off of the tissue resection the size of the polyps was 2 cm x 1 cm in size. I did not instill chemotherapy in the bladder since I was not convinced this was cancer. He does have a very large prostate so organ to start him on medical therapy with tamsulosin and Proscar. Patient anesthetic is being reversed and I will go talk to the family regarding the findings that did not look like he had bladder cancer and just a very large prostate. Surgeon: Darrell Monet Type of Anesthesia: General Drains: none Estimated Blood Loss (mL): 0 Admit VTE Documentation VTE Present on Admission: No VTE Mechan Device Prophylaxis: SCD's VTE Pharm Prophylaxis ordered?: No
--- NOTE | 2022-09-05 10:26 | SUR.PHASEI ---
DR LEBLANC NOTIFIED OF PT C/O RT TONGUE SWELLING & THAT THIS HAPPENS IN REACTION TO PEANUT ALLERGY.
--- NOTE | 2022-09-05 10:30 | SUR.PHASEI ---
WHILE TAKING PT OFF MONITOR AND PREPARING PT FOR PHASE II, PT C/O TONGUE SWELLING, RT TONGUE SMALL AREA OF SWELLING, SIZE OF DIME, MOUTH PINK, PT STATES THIS IS COMMON WHEN HE HAS A REACTION TO PEANUTS. PT DENIES ANY PEANUT CONSUMPTION.
--- NOTE | 2022-09-05 10:35 | SUR.PHASEII ---
DR LEBLANC AT BEDSIDE TO EVALUATE.
--- NOTE | 2022-09-05 10:45 | SUR.PHASEI ---
DR LEBLANC STATES OK TO MOVE PT TO PHASE II
[2022-09-05] MEDS: DiphenhydrAMINE 50 MG/ML Syringe IV (11:20)
--- NOTE | 2022-09-05 11:26 | SUR.PHASEII ---
1115- FAMILY MEMBER CAME OUT TO NURSES STATION AND INFORMED THIS NURSE THAT PT HAD INC SWELLING OF TOUNGE. ALEC GUZMAN, PT FEELS HIS TOUNGE IS GETTING MORE SWOLLEN. DR LEBLANC AT BEDSIDE, PT GIVEN DECADRON IN PHASE 1, NEW ORDER FOR BENADRYL 50 MG IV X1. BENADRYL GIVEN, WILL CONT TO MONITOR PT.
--- NOTE | 2022-09-05 11:41 | SUR.PHASEII ---
DR LEBLANC CONSULTED DR NEWTON, WILL OBSERVE PT UNTIL 1600 AND REEVALUATE. SWELLING IN THE TOUNGE IS DECREASING SINCE GIVING BENADRYL. PO PEPCID ALSO ORDERED PER DR LEBLANC.
[2022-09-05] MEDS: Famotidine 20 MG Tablet 40 MG PO (11:50)
--- NOTE | 2022-09-05 13:37 | SUR.PHASEII ---
decision to admit per Dr Monet
[2022-09-05] MEDS: Lactated Ringers 1,000 ML 75 ML IV ×2 (15:10→17:01)
[2022-09-05] MEDS: DiphenhydrAMINE 50 MG/ML Syringe 25 MG IV ×3 (15:10→22:08)
--- NOTE | 2022-09-05 15:38 | PCM.CONS.GEN ---
Assessment & Plan Assessment/Plan (1) Angioedema: QUALIFIERS: Encounter type: initial encounter Qualified Code(s): T78.3XXA - Angioneurotic edema, initial encounter PLAN: Plan This is a 76-year-old gentleman being admitted to evaluate for angioedema. 1. Angioedema of posterior part of the tongue/posterior pharyngeal region: Patient is being admitted in [facility] floor. Currently airway is patent with no shortness of breath, dysarthria or dysphagia. No feeling of numbness. Patient can maintain airway. IV Solu-Medrol 60 mg 1 dose given. Patient already had dexamethasone in ED. IV Benadryl 25 mg every 6 hourly as needed for shortness of breath/airway swelling. Patient cannot have famotidine as there is peanut constituent/cross-reactivity. 2. Bladder mass with very large prostate and gross hematuria: Patient had transurethral resection of the tumor. Patient was thought to be malignant but felt like benign therefore Mutamycin was not given. As per operative note, it is felt like benign polyp from BPH/bladder. Mild bleeding through urethra/peritube leak. 3. 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 Zapien. PFT was recommended. CT scan was done which did not show any mets. 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 Advised to complete PFT and walking pulse oximetry with pulmonary clinic. 4. Hypertension: Continue home medication. Patient is on losartan 25 mg daily and amlodipine 10 mg daily. Blood pressure in normal range 5. BPH on finasteride and tamsulosin. DVT prophylaxis, pharmacological prophylaxis contraindicated as patient still has mild hematuria HPI Consult Data Date of Consult: 09/05/22 HPI Narrative Reason for Consultation: Soft tissue and tongue swelling/angioedema HPI Narrative: TYLER OLIVO, is a 76 M who had elective transurethral resection of bladder tumor which was thought to be benign after resection. During the procedure patient developed swelling of the posterior pharyngeal region in PACU region. This was done under general anesthesia with IV propofol fentanyl and succinylcholine. After surgery patient was noted to have tongue swelling and was given Benadryl 50 mg IV and 12 mg IV dexamethasone. Patient denies shortness of breath, pain, numbness or tingling of the pharyngeal region.He did not feel like his airway was cut off right leg swelling in the pharyngeal region. [facility] He is not having any shortness of breath. His tongue swelling is also better. Patient states he is allergic to peanuts and gets recurrent tongue swelling probably 50 times in the past till now. He has 2 EpiPen all the time. He also takes Benadryl whenever he gets tongue swelling or or if it is expected as premedication. 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 He has history of smoking 3 packs/day for 20 years and quit about 20 years ago. He follows Dr. Jaramillo in pulmonary clinic. [facility] Medical History (Updated 09/05/22 @ 16:[address] Zach Villeda MD) Angioedema Bladder disease Cancer Former smoker Gastric reflux Osteoporosis Rotator cuff arthropathy of both shoulders Shortness of breath on exertion Trigger finger of left hand Umbilical hernia Wears dentures Wears glasses Home Medications amlodipine 10 mg tablet 10 mg PO DAILY 08/20/22 [History Last Taken 09/05/22 05:30] atorvastatin 40 mg tablet 40 mg PO DAILY 08/20/22 [History Last Taken Unknown] ixekizumab 80 mg/mL subcutaneous auto-injector (Taltz Autoinjector) 80 mg subcut Q4W 08/20/22 [History Last Taken Unknown] omeprazole 20 mg capsule,delayed release 20 mg PO DAILY 08/20/22 [History Last Taken 09/05/22 05:30] epinephrine 0.3 mg/0.3 mL injection, auto-injector 0.3 mg IM DAILY PRN ALLERGY 08/27/22 [History Last Taken Unknown] losartan 25 mg tablet 25 mg PO DAILY 08/27/22 [History Last Taken 09/05/22 05:30] omega 0-iql-hef-fish oil 300 mg-1,000 mg capsule,delayed release (Fish Oil) 1 cap PO DAILY 08/27/22 [History Last Taken Unknown] cephalexin 500 mg capsule 500 mg PO BID #10 caps 09/05/22 [Rx Last Taken Unknown] finasteride 5 mg tablet 5 mg PO DAILY #90 tabs 09/05/22 [Rx Last Taken Unknown] oxycodone 5 mg capsule 5 mg PO Q6H PRN pain 7 days #14 caps 09/05/22 [Rx Last Taken Unknown] oxycodone 5 mg tablet 5 mg PO Q6H PRN pain 7 days #10 tabs 09/05/22 [Rx Last Taken Unknown] tamsulosin 0.4 mg capsule 0.4 mg PO QHS #90 caps 09/05/22 [Rx Last Taken Unknown] Allergy/AdvReac Type Severity Reaction Status Date / Time peanut [peanuts] Allergy Severe Anaphylaxis Verified 09/05/22 11:53 Surgical History H/O hemorrhoidectomy Social History household members: none Smoking Status: Former smoker Tobacco: How many years used: 20 substance use type: does not use Physical Exam Narrative Seen and examined. General: Alert, Oriented x3, Cooperative HEENT: Atraumatic, PERRLA, EOMI, Normocephalic Oral: Posterior tongue mild swelling on the lateral margin. Soft palate, posterior pharyngeal wall, uvula and left tonsil is seen. No Gingival or Mucosal Lesions/ Ulcerations Neck: Supple, No JVD, Negative Carotid Bruits Lungs: Air entry diminished in bilateral lung bases. No crepitation/rhonchi Cardiovascular: Regular rate, Regular Rhythm, Normal S1, Normal S2, No murmurs Abdomen: Bowel Sounds Present, Soft, Non Tender, Non-Distended : Mild bleeding periurethral region, pericatheter. Blood mixed with urine in Taylor tube and [place]. No renal angle tenderness. No suprapubic tenderness. Extremities: No edema, Capillary Refill Less than 3 Seconds Skin: No rashes, No breakdown Musculoskeletal: No Tenderness to Palpation of Joints or Extremities Neurological: Cranial nerves II-XII grossly intact, DTR 2+/4 and Symmetrical, Neuro grossly intact Psych/Mental Status: Normal Affect, Appropriate. Charges/Coding Visit Charges Office Visits / Consults: 82994 OP Consult L4
[2022-09-05] MEDS: Tamsulosin HCl 0.4 MG Capsule 0.8 MG PO (17:00)
[2022-09-05] MEDS: MethylPREDNISolone 125 MG/2 ML Vial 60 MG IV (17:00)
[2022-09-05] MEDS: 0.9% Saline Lock 10 ML Syringe IV (22:08)
[2022-09-06 02:17] VITALS: BP 140/83; PULSE 74; RESP 16; TEMP 37.1; O2SAT 95
[2022-09-06] MEDS: DiphenhydrAMINE 50 MG/ML Syringe 25 MG IV ×2 (02:23→06:02)
[2022-09-06] MEDS: 0.9% Saline Lock 10 ML Syringe IV ×2 (02:24→06:03)
--- NOTE | 2022-09-06 07:26 | PCM.PN.GU ---
Subjective Subjective Patient was kept overnight for observation because of some edema of the tongue this is normalized. He also had retention urine with blood clots after biopsy. This is clearing up. Today we can remove the catheter for voiding trial. He was taking Flomax from last night. He will be discharged home with Flomax and Proscar. Plan to discharge patient home today after he is able to urinate we will remove the catheter this morning. Objective Data Objective Data Vital Signs: Vital Signs Temp Pulse Resp BP Pulse Ox O2 Del Method 98.7 F 74 16 140/83 H 95 Room Air 09/06/22 02:09/06/22 02:09/06/22 02:17 09/06/22 02:17 09/06/22 02:09/06/22 02:17 Oxygen Delivery Method Room Air Weight: 107 kg Body Mass Index (BMI) 29.5 Intake & Output: Intake and Output for Last 24 Hours 09/04/22 09/05/22 09/06/22 23:59 23:59 23:59 Intake Total 960.25 / 960.25 852.5 / 852.5 Output Total 1500 / 1500 800 / 800 Balance -539.75 / -539.75 52.5 / 52.5
[2022-09-06] MEDS: Atorvastatin Calcium 40 MG Tablet PO (07:56)
[2022-09-06] MEDS: Losartan Potassium 25 MG Tablet PO (07:56)
[2022-09-06] MEDS: Finasteride 5 MG Tablet PO (07:56)
[2022-09-06] MEDS: amLODIPine 10 MG Tablet PO (07:56)
[2022-09-06] MEDS: Pantoprazole Sodium 20 MG Tablet PO (07:56)
[2022-09-06 08:00] VITALS: BP 157/78; PULSE 85; RESP 18; TEMP 36.4; O2SAT 94
--- NOTE | 2022-09-06 13:12 | PN.HOSP_ITS ---
Reason for Visit Reason for Visit: Diagnoses Malignant (primary) neoplasm, unspecified (09/05/22) Benign prostatic hyperplasia without lower urinary tract symptoms (09/05/22) Angioneurotic edema, initial encounter (09/05/22) Encounter for other preprocedural examination (09/05/22) Subjective Subjective Follow-up after angioedema of pharyngeal region/ Objective Data Objective Data Vital Signs: Vital Signs Temp Pulse Resp BP Pulse Ox O2 Del Method 97.6 F L 85 18 157/78 H 94 Room Air 09/06/22 08:00 09/06/22 08:00 09/06/22 08:00 09/06/22 08:00 09/06/22 08:00 09/06/22 08:00 Oxygen Delivery Method Room Air Weight: 235 lb 14.314 oz Body Mass Index (BMI) 29.5 Intake & Output: Intake and Output for Last 24 Hours 09/04/22 09/05/22 09/06/22 23:59 23:59 23:59 Intake Total 960.25 / 960.25 915.0 / 915.0 Output Total 1500 / 1500 925 / 925 Balance -539.75 / -539.75 -10.0 / -10.0 Physical Exam Narrative Seen and examined. General: Alert, Oriented x3, Cooperative HEENT: Atraumatic, PERRLA, EOMI, Normocephalic. Airway patent. Oral: Tongue normal size. Soft palate, posterior pharyngeal wall, uvula and left tonsil is seen. No Gingival or Mucosal Lesions/ Ulcerations Neck: Supple, No JVD, Negative Carotid Bruits Lungs: Air entry diminished in bilateral lung bases. No crepitation/rhonchi Cardiovascular: Regular rate, Regular Rhythm, Normal S1, Normal S2, No murmurs Abdomen: Bowel Sounds Present, Soft, Non Tender, Non-Distended : Mild bleeding periurethral region, pericatheter. Blood mixed with urine in Taylor tube and [place]. No renal angle tenderness. No suprapubic tenderness. Extremities: No edema, Capillary Refill Less than 3 Seconds Skin: No rashes, No breakdown Musculoskeletal: No Tenderness to Palpation of Joints or Extremities Neurological: Cranial nerves II-XII grossly intact, DTR 2+/4 and Symmetrical, Neuro grossly intact Psych/Mental Status: Normal Affect, Appropriate. Assessment & Plan Assessment/Plan (1) Angioedema: QUALIFIERS: Encounter type: initial encounter Qualified Code(s): T78.3XXA - Angioneurotic edema, initial encounter PLAN: Plan This is a 76-year-old gentleman being admitted to evaluate for angioedema. 1. Angioedema of posterior part of the tongue/posterior pharyngeal region: [facility] Currently airway is patent with no shortness of breath, dysarthria or dysphagia. No feeling of numbness. Patient can maintain airway. IV Solu-Medrol 60 mg 1 dose given. Patient already had dexamethasone in ED. IV Benadryl 25 mg every 6 hourly as needed for shortness of breath/airway swelling. Patient cannot have famotidine as there is peanut constituent/cross-reactivity. 09/06: Patient is medically stable for discharge. He has EpiPen and Benadryl at home. Currently he does not need Benadryl or steroid. He already had yesterday. Advised/educated about allergy about peanuts and autoimmune reaction. 2. Bladder mass with very large prostate and gross hematuria: Patient had transurethral resection of the tumor. Patient was thought to be malignant but felt like benign therefore Mutamycin was not given. As per operative note, it is felt like benign polyp from BPH/bladder. Mild bleeding through urethra/peritube leak. 09/06: Care as per urologist 3. 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 Zapien. PFT was recommended. CT scan was done which did not show any mets. 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 Advised to complete PFT and walking pulse oximetry with pulmonary clinic. 4. Hypertension: Continue home medication. Patient is on losartan 25 mg daily and amlodipine 10 mg daily. Blood pressure in normal range 5. BPH on finasteride and tamsulosin. DVT prophylaxis, pharmacological prophylaxis contraindicated as patient still has mild hematuria Patient can be discharged from medicine side. Charges/Coding Multi Select Codes Visit Charges Office Visit/Consults: 10401 OV L3 Est
[2022-09-06 13:35] VITALS: BP 141/79; PULSE 88; RESP 18; TEMP 36.6; O2SAT 97
== END 2022-09-06 13:39 | disposition home or self-care (01) ==
LOC: SDC 14:24 → MS3 14:24
PROVIDERS: Admitting Provider Urology; PCP Nurse Practitioner Family; Referring Provider Urology; Visit Provider Urology
PROC: 0T5B8ZZ Destruction of Bladder, Via Natural or Artificial Opening Endoscopic (ICD-10-PCS; CPT 51720; principal; 2022-09-05 08:45)
DX: D41.4 Neoplasm of uncertain behavior of bladder (principal); N40.1 Benign prostatic hyperplasia with lower urinary tract symptoms; R33.8 Other retention of urine; Z87.891 Personal history of nicotine dependence; R06.02 Shortness of breath; I10 Essential (primary) hypertension; R30.0 Dysuria; Z79.899 Other long term (current) drug therapy; R31.0 Gross hematuria; Z77.090 Contact with and (suspected) exposure to asbestos; T78.3XXA Angioneurotic edema, initial encounter; K21.9 Gastro-esophageal reflux disease without esophagitis
CPT/HCPCS: 52235; 00912; 88307; 93005; 96361; 96374; 96375; 96376; 99221; J7120; J9280; A4216; G0378; J2405

== ENCOUNTER → 2022-10-26 | Outpatient (CLI) | payer MEDICARE, SELFPAY ==
--- NOTE | 2022-10-27 05:59 | PFT ---
INTRODUCTION: The patient is a 76-year-old male who presents for pulmonary function studies secondary to a diagnosis of dyspnea. Respiratory therapy reported good patient effort. Bronchodilators were used during testing. INTERPRETATION: Forced expiration spirometry demonstrates no evidence of a large airways obstructive ventilatory defect. There was a partial, although technically nonsignificant, response to aerosolized bronchodilators. Spirograms are of good quality and plateau normally. Body plethysmography was performed and revealed a decreased TLC to 5.16 L, 63% of predicted, indicative of a moderate restrictive ventilatory impairment. Diffusing capacity by single breath CO was within normal limits. IMPRESSION: Moderate restrictive ventilatory impairment with preserved diffusing capacity.
== END | disposition home or self-care (01) ==
PROVIDERS: PCP Nurse Practitioner Family; Referring Provider Internal Medicine Critical Care Medicine; Visit Provider Internal Medicine Critical Care Medicine
DX: R06.00 Dyspnea, unspecified (principal)
CPT/HCPCS: 94060; 94726; 94729

== ENCOUNTER → 2022-10-30 | Outpatient (CLI) | payer MEDICARE, SELFPAY ==
[2022-10-30 10:50] VITALS: PULSE 79; PULSE 81; PULSE 90; PULSE 92; PULSE 93; PULSE 95; PULSE 96; O2SAT 93; O2SAT 94; O2SAT 95
--- NOTE | 2022-10-31 09:53 | PCM.PSN.6M ---
PSN 6 Minute Walk Test 6 Minute Walk Test 6 Minute Walk Test: 6 Minute Walk Test PSN:6-Minute Walk Test Start: 10/30/22 10:50 Freq: Status: Active Protocol: RESP.6MINW Document 10/30/22 10:50 NEDA (Rec: 10/30/22 10:52 NEDA [id number]) 6 Minute Walk Test Date Performed 10/30/22 Time Performed 10:40 Height 6 ft 4 in Weight: 235 lb Weight in Pounds 235.[address]: Henry Jaramillo Assistive device used: None Pre-test Oxygen Delivery Method Room Air Pulse Ox 94 Pulse Rate (60-100) 81 Dyspnea Yuriy Scale (0-10) 0 Exertion Yuriy Scale (6-20) 6 1st minute Oxygen Delivery Method Room Air Pulse Ox 93 Pulse Rate (60-100) 93 2nd minute Oxygen Delivery Method Room Air Pulse Ox 93 Pulse Rate (60-100) 95 3rd minute Oxygen Delivery Method Room Air Pulse Ox 93 Pulse Rate (60-100) 92 4th minute Oxygen Delivery Method Room Air Pulse Ox 93 Pulse Rate (60-100) 90 5th minute Oxygen Delivery Method Room Air Pulse Ox 94 Pulse Rate (60-100) 93 6th minute Oxygen Delivery Method Room Air Pulse Ox 94 Pulse Rate (60-100) 96 Dyspnea Yuriy Scale (0-10) 1 Exertion Yuriy Scale (6-20) 11 Post-test Oxygen Delivery Method Room Air Pulse Ox 95 Pulse Rate (60-100) 79 Full Laps Walked 20 Partial Lap, Number of Tiles Walked 10 Total Distance Walked (ft) 1190 Interpretation Interpretation: The patient ambulated 1190 feet over the course of 6 minutes beginning on room air without assistive devices. Pretesting oxygen saturation was noted to be 94% on room air. With ambulation, the iqra oxygen saturation was 93%. There was no significant exertional oxygen desaturation. Recommendations Recommendations: There is no indication for the use of supplemental oxygen at this time.
== END | disposition home or self-care (01) ==
PROVIDERS: PCP Nurse Practitioner Family; Referring Provider Internal Medicine Critical Care Medicine; Visit Provider Internal Medicine Critical Care Medicine
DX: R06.00 Dyspnea, unspecified (principal)
CPT/HCPCS: 94618

== ENCOUNTER 2023-01-09 08:55 | Day surgery (SDC) | payer MEDICARE, SELFPAY ==
[2023-01-03 13:57] LABS: Hemoglobin 15.3 g/dL (13.0-16.5); Mean Corp Hgb Conc 33.3 g/dL (32-36); Mean Corpuscular Hgb 30.5 pg (27.0-32.0); Mean Corpuscular Volume 91.8 fL (80-94); Mean Platelet Vol. 9.6 fl (6.2-12.0); Platelet Count 306 K/mm3 (150-450); RBC Distribution Width CV 11.9 % (11.6-14.6); Red Blood Count 5.01 M/mm3 (4.6-6.2)
[2023-01-03 14:20] LABS: Anion Gap 6 (5-15); BUN 12 mg/dL (7-18); BUN/Creat Ratio 12.4 RATIO (10-20); Calcium,Total 8.4 mg/dL (8.5-10.1); Chloride 103 mmol/L (98-107); Creatinine, Serum 0.96 mg/dL (0.70-1.30); EST Glomerular Filtration Rate 81 mL/min (>60); Est Glom Filt Rate - Afr Amer 98 mL/min (>60); Glucose 116 mg/dL (74-106); Potassium 3.6 mmol/L (3.5-5.1); Sodium Level 137 mmol/L (136-145)
[2023-01-09 09:20] VITALS: BP 170/88; PULSE 68; RESP 18; TEMP 36.2; O2SAT 99; BMI 28.7
--- NOTE | 2023-01-09 09:26 | PCM.HP.BLA ---
History and Physical Date of Admission: 01/09/23 Chief Complaint: UMBILICAL HERNIA Garment Supervisor Required: No Is patient in pain?: No Allergies peanut [peanuts] Allergy (Severe, Verified 12/18/22 09:22) Anaphylaxis Medications amlodipine 10 mg tablet 10 mg PO DAILY 08/20/22 [History Confirmed 12/18/22] atorvastatin 40 mg tablet 40 mg PO DAILY 08/20/22 [History Confirmed 12/18/22] ixekizumab 80 mg/mL subcutaneous auto-injector (Taltz Autoinjector) 80 mg subcut Q4W 08/20/22 [History Confirmed 12/18/22] omeprazole 20 mg capsule,delayed release 20 mg PO DAILY 08/20/22 [History Confirmed 12/18/22] epinephrine 0.3 mg/0.3 mL injection, auto-injector 0.3 mg IM DAILY PRN ALLERGY 08/27/22 [History Confirmed 12/18/22] losartan 25 mg tablet 25 mg PO DAILY 08/27/22 [History Confirmed 12/18/22] omega 3-zpk-iat-fish oil 300 mg-1,000 mg capsule,delayed release (Fish Oil) 1 cap PO DAILY 08/27/22 [History Confirmed 12/18/22] finasteride 5 mg tablet 5 mg PO DAILY #90 tabs 09/05/22 [Rx Confirmed 12/18/22] tamsulosin 0.4 mg capsule 0.4 mg PO QHS #90 caps 09/05/22 [Rx Confirmed 11/13/22] PFSH Medical History (Updated 12/19/22 @ 07:25 by Shakila NELSON, PA-C) Angioedema Bladder disease Cancer Former smoker Gastric reflux Osteoporosis Rotator cuff arthropathy of both shoulders Shortness of breath on exertion Trigger finger of left hand Umbilical hernia Wears dentures Wears glasses Surgical History (Updated 12/18/22 @ 09:22 by Radha Corrales) H/O hemorrhoidectomy S/P TURP Social History household members: none Smoking Status: Former smoker Tobacco: How many years used: 20 substance use type: does not use HPI HPI Surgical H&P: Yes HPI: Patient is a 77 y/o M I am seeing for an update history and physical for an upcoming elective umbilical hernia repair with mesh. Patient had a TURP procedure with resection of medium-sized tumor with Dr. Monet for a bladder mass. Pathology returned benign. Patient had no concerns or complications following the procedure. Patient denies any further hospitalizations or illnesses since his office visit with Dr. Manjarrez in July. Patient denies previous cardiac history, stroke, blood clots. He notes he recently had a follow up with pulmonary, Dr. Jaramillo for an abnormal CT scan of the lungs. 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 PFT's were completed showing mild restriction. Patient has no current symptoms or shortness of breath. Patient notes tenderness at the umbilical hernia if pressure is applied to it otherwise no new concerns. He denies any recent bowel habit changes. Patient's previous history per Dr. Manjarrez: 76-year-old gentleman who has been having hematuria and has just recently been identified as having a bladder mass. Prior to this finding he had been referred by NILDA Medrano for surgical consultation regarding an umbilical hernia. The patient's most recent PSA level is 4.79. Reported that previous chest CT demonstrated a 3 and a 6 mm nodule February 2020. He is being referred to Dr. Henry Jaramillo. Patient's had a previous history of 20 years of 2 to 3 pack/day smoking. As of August 16, 2022 hemoglobin globin was 14.9 hematocrit 43.8 with a platelet count of 276,000 BUN was 10 and creatinine 0.88. A urinalysis had high level of protein at 500 and urine occult blood high at 250 with greater than [address] abdomen pelvis on that day demonstrated a 5.4 x 3.3 cm high suspicion enhancing mass of the urinary bladder no regional adenopathy and a large prostate was identified ectasia of the abdominal aorta at 2.5 x 2.7 cm and a fat filled umbilical hernia. I have personally reviewed those images. Has had his umbilical hernia for period of time. It has been progressively enlarging however. He is interested in pursuing a repair. ROS General General: No weight change, appetite, fatigue, colon cancer, breast cancer or weakness HEENT HEENT: No difficulty swallowing, eye injury, eye surgery, swollen glands or hoarseness Endo Endocrine: No thyroid disease, diabetes mellitus, thyroid cancer, Hair loss, heat intolerance or cold intolerance Skin Skin: No rash or changing moles Breast Breast: No left breast lump, right breast lump, nipple discharge, breast pain, abnormal mammogram, abnormal US or breast enlargement Musc Musculoskeletal: No back problems, arthritis, rheumatoid arthritis, gout or joint pain Cardio Cardiovascular: Yes high blood pressure; No murmur, pacemaker, heart disease, atrial fibrillation, heart attack, heart stent, palpitations, shortness of breat with exertion or chest pain Psych Psychiatric: No depression, anxiety or hearing voices Resp Respiratory: Yes shortness of breath, No sleep apnea, No cough, No COPD, No asthma, No emphysema and No wheezing Gastro Gastrointestinal: No abdominal pain, No nausea or vomiting, No diarrhea, No constipation, No blood in stool, No acid reflux, No hemorrhoids, No ulcers, No gallbladder problem and No black,tarry stools Chuck Hematologic: Yes blood thinners, No blood disorders, Yes bleeding, No anemia and Yes blood clots Additional Details: ASA 81MG Neuro Neurologic: No system reviewed and no additional complaints, except as documented, No as per HPI, No abnormal gait, No abnormal hearing, No abnormal movements, No abnormal speech, No behavioral changes, No burning sensations, No confusion, No convulsions, No disequilibrium, No dizziness, No localized weakness, No frequent falls, No headache(s), No lack of coordination, No loss of vision, No memory loss, No numbness, No other visual disturbances, No radicular pain, No restless legs, No sensory deficit, No syncope, No tingling, No tremor(s), No weakness and No other Exam Const General: cooperative, healthy appearing, comfortable and no acute distress Nutritional Appearance: average body habitus [facility] Head: normal to inspection Eyes General: appearance normal, both eyes and all related structures Neck Neck: normal visual inspection Neck mass: No Resp Effort & Inspection: normal respiratory effort Auscultation: clear to auscultation bilaterally Cardio Rate: regular rate Rhythm: regular rhythm GI Palpation: soft and hernia umbilical Auscultation: normal bowel sounds Musc Cervical Spine: normal cervical lordosis Skin General: no rashes or lesions noted Neuro General: no focal motor deficits and CN's II-XI intact bilaterally Extrem General: normal to inspection Psych Appearance: grossly normal Affect: normal affect Assessment and Plan Assessment and Plan (1) Umbilical hernia: Status: Acute Qualifiers: Obstruction and gangrene presence: without obstruction or gangrene Qualified Code(s): K42.9 - Umbilical hernia without obstruction or gangrene Plan: Dr. Manjarrez will plan to perform an umbilical hernia with mesh. Procedure details, risks and benefits have been explained. Patient has had the opportunity to ask and have questions answered. Patient verbally understands and agrees with the plan. Coding Level of Care Code No Charge Diagnoses Umbilical hernia without obstruction and without gangrene K42.9 Obstruction and gangrene presence: without obstruction or gangrene I have examined the patient and the H&P has been reviewed. There are no clinical changes since date of exam. Serafin Manjarrez M.D., F.A.C.S.
--- NOTE | 2023-01-09 09:27 | DCINST_ITS ---
Discharge Instructions Procedure General Surgery Diet Discharge Diet: Light diet - advance as tolerated (if you have questions about your diet instructions, please talk to you doctor.) Activity Discharge Activity: May Not Drive (for 3-5 days or while taking narcotic pain medicine.) May shower in (days): 1 Lifting Restrictions: 10 pounds Dressing / Incision Call your doctor if your incision/area has: Continuous Slow Oozing, Sudden Increased Bleeding, Increased Pain/ Swelling, Increased Redness and Foul Smelling Discharge Call your doctor if you observe: Fever of 101 or Higher Suture Line Care: Avoid Pulling/Pushing and Avoid Pinching/Bending Additional Dressing/Incision Instructions:: Change or remove dressing in 4 days. Leave steri-strips in place for 1 week. Follow Up Care Please Follow Up With: Serafin Manjarrez MD When: Call [phone] to make an appointment to be seen in about 10 days. Test Results: Test results from this visit will be discussed in further detail at your follow- up appointment, if applicable. Discharge Plan Admission Attending Provider: Serafin Manjarrez Primary Care Provider: Rosenda Dickson NP Discharge Orders/Prescriptions Prescriptions: No Action atorvastatin 40 mg tablet 40 mg PO DAILY omeprazole 20 mg capsule,delayed release(DR/EC) 20 mg PO DAILY amlodipine 10 mg tablet 10 mg PO DAILY Taltz Autoinjector 80 mg/mL auto-injector 80 mg subcut Q4W epinephrine 0.3 mg/0.3 mL auto-injector 0.3 mg IM DAILY PRN (Reason: ALLERGY) losartan 25 mg tablet 25 mg PO DAILY omega 9-usa-swy-fish oil [Fish Oil] 300-1,000 mg capsule,delayed release(DR/EC) 1 cap PO DAILY finasteride 5 mg tablet 5 mg PO DAILY Qty: 90 3RF Referrals / Follow Up: Rosenda Dickson NP, [employer] [Primary Care Provider] - Disposition Disposition (needs filled in before D/C Order can be placed): Home, Self Care
[2023-01-09] MEDS: Lactated Ringers 1,000 ML 15 ML IV (09:28)
[2023-01-09] MEDS: Cefazolin 2 GM in 0.9% Normal Saline (100mL Bag) 100 ML IV (10:19)
--- NOTE | 2023-01-09 11:00 | HERN_PTH ---
PATIENT: TYLER OLIVO LOC: [facility] U#:[id number] AGE/SX: 77/M ROOM: RE01/09/[address]: Dr. Serafin Manjarrez MD : 1945 BED: DIS: 01/09/2023 SPEC #: [id number] RECD: 01/10/23 07:47 STATUS: PATT GILSON #: [id number] LAURIE: 01/09/23 11:[address]: Serafin Manjarrez DEPT: SURGICAL PATHOLOGY RECD BY: Chelsie Victoria ENTERED: 01/10/23 07:48 SP TYPE: Hernia OTHR DR: NILDA Mercado Tissues: HERNIA Procedures: Surgery Specimen Level II HEADER OPERATION: Open umbilical hernia repair with mesh PRE-OP DIAGNOSIS: Umbilical hernia TISSUE SUBMITTED: Umbilical hernia sac and contents MICROSCOPIC DIAGNOSIS Umbilical hernia sac and contents, excision: Mature fibrofatty tissue consistent with fibrosis and mild chronic inflammation. AM:ruth 01/11/2023 MICROSCOPIC DESCRIPTION Slides are reviewed. GROSS DESCRIPTION Received in fixative is one container labeled with the patient's name and designated umbilical hernia sac and contents. The specimen consists of two irregular fragments of wang-yellow fibrofatty tissue that in aggregate measure 3.0 x 2.5 x 1.5 cm. Director [employer] sections are submitted in one cassette. / AM:ruth 01/10/2023 TC:3 CPT: 68679
--- NOTE | 2023-01-09 11:08 | PCM.OPRPT ---
Report of Operation Date of Procedure: 01/09/23 Pre-Operative Diagnosis: Umbilical hernia Post-Operative Diagnosis: Umbilical hernia with 2.5 cm defect Surgery/Procedure Performed:: Umbilical herniorrhaphy with 6.[address] hernia patch Lot [id number], reference [id number], expiry date 04/24/2024 Description of Surgical Findings:: Timeout informed consent was obtained. 77-year-old gentleman was taken to the operating place upon the table underwent general anesthesia with an LMA. He did receive prophylaxis for possible anaphylaxis. He received 2 g of Ancef. The abdomen was sterilely prepped and draped. A curvilinear incision was made at the inferior portion of the umbilicus. Sharp dissection carried down through the subcutaneous tissue. Significant amount of preperitoneal fatty tissue within the hernia was encountered and this was transected with electrocautery and submitted a specimen. Then the peritoneum was dissected free and the retrorectus space was identified. A 6.[address] hernia patch was placed in this location. The tails were secured with interrupted 0 Nurolon. The fascia was approximated transversely with simple sutures of 0 Nurolon capturing the anterior surface of the mesh. Good approximation was achieved. The skin of the umbilicus was tacked down to the fascia with 4-0 Monocryl. Subdermal tissues approximated with the same. Surgical glue was applied. Cotton ball Telfa OpSite applied. Sponge and instrument and needle counts were reported to the surgeon to be correct. Specimen hernia sac and contents. Drains none. Blood loss minimal. The patient was taken the recovery room in satisfactory addition without apparent complication Serafin Manjarrez M.D., F.A.C.S. Surgeon: Serafin Manjarrez Type of Anesthesia: General and Local Anesthesiologist: Greg Ferro
[2023-01-09] MEDS: Bupivacaine Mpf 0.5% 30 ML VIAL (11:09)
[2023-01-09 11:22] VITALS: BP 138/87; BP 170/88; PULSE 89; RESP 16; TEMP 36.2; O2SAT 94
[2023-01-09 11:30] VITALS: BP 151/91; BP 170/88; PULSE 93; RESP 16; O2SAT 93
[2023-01-09 11:45] VITALS: BP 163/83; BP 170/88; PULSE 84; RESP 16; TEMP 36.6; O2SAT 93
[2023-01-09 13:51] VITALS: BP 145/91; BP 170/88; PULSE 85; RESP 16; TEMP 36.4; O2SAT 92
[2023-01-09 14:34] VITALS: BP 170/88
== END 2023-01-09 14:39 | disposition home or self-care (01) ==
LOC: SDC 09:02 → AC 09:03
PROVIDERS: PCP Nurse Practitioner Family; Referring Provider Surgery; Visit Provider Surgery
PROC: (CPT 49591; principal; 2023-01-09 10:45)
DX: K42.1 Umbilical hernia with gangrene (principal); I10 Essential (primary) hypertension; K21.9 Gastro-esophageal reflux disease without esophagitis; Z79.899 Other long term (current) drug therapy; Z87.891 Personal history of nicotine dependence
CPT/HCPCS: 49591; 00830; 36415; 80048; 85027; 88302; C1781; J7120; J2405

== ENCOUNTER → 2023-07-15 | Outpatient (CLI) | payer MEDICARE, SELFPAY | END | disposition home or self-care (01) | PROVIDERS: PCP Nurse Practitioner Family; Referring Provider Internal Medicine Critical Care Medicine; Visit Provider Internal Medicine Critical Care Medicine | DX: R91.8 Other nonspecific abnormal finding of lung field (principal) | CPT/HCPCS: 94060; 94726; 94729 ==

== ENCOUNTER → 2024-07-21 | Outpatient (CLI) | payer MEDICARE, SELFPAY ==
[2024-07-24 04:07] LABS: QNTFERON TB Mitogen Value > 10.00 IU/mL (.); QNTFERON TB Nil Value 0.02 IU/mL (.); QNTFERON TB1+ Ag Value 0.02 IU/mL (.); QNTFERON TB2+ Ag Value 0.03 IU/mL (.); QNTIFERON TB Positive Criteria Negative (Negative)
== END | disposition home or self-care (01) ==
LOC: MTLAB 11:01 → LAB 13:29
PROVIDERS: PCP Nurse Practitioner Family; Referring Provider Urology; Visit Provider Dermatology
DX: L40.0 Psoriasis vulgaris (principal); Z79.899 Other long term (current) drug therapy; L30.9 Dermatitis, unspecified; L29.89 Other pruritus; R20.8 Other disturbances of skin sensation
CPT/HCPCS: 36415; 84153; 86480